=== PATIENT | female | born 1985 | race Caucasian/White ===

== ENCOUNTER 2017-11-23 11:43 | Outpatient (CLI) | payer OTHER | END 2017-11-23 11:44 | disposition home or self-care (01) | LOC: BICULT 11:43 | PROVIDERS: ATTEND Student in an Organized Health Care Education/Training Program | DX: Z12.31 Encounter for screening mammogram for malignant neoplasm of breast (principal) | CPT/HCPCS: 77063; 77067 ==

== ENCOUNTER 2018-10-06 11:54 | Emergency (ER) | payer OTHER ==
[2018-10-06 12:23] LABS: #Eosinphils 0.1 thou/uL (0.0-0.7); #Lymphocytes 1.9 thou/uL (1.20-3.40); #Monocytes 0.4 thou/uL (0.11-0.59); #Neutrophils 5.6 thou/uL (1.40-6.50); %Basophils 0.5 % (0.0-1.0); %Eosinophils 0.9 % (0.0-10.0); %Lymphocytes 23.6 % (21.0-51.0); %Monocytes 4.5 % (0.0-10.0); %Neutrophils 70.5 % (42.0-75.0); Hemoglobin 14.4 g/dL (12.0-16.0); Mean Corpuscular HGB CONC 34.2 g/dL (32.0-36.0); Mean Corpuscular Hemoglobin 31.8 pg (27.0-31.0); Mean Corpuscular Volume 93.1 fL (78.0-98.0); Mean Platelet Volume 7.6 fL (7.4-10.4); Platelet Count 326 thou/uL (130-400); RBC Distribution Width 11.6 % (11.5-14.5); Red Blood Cell (RBC) Count 4.53 mill/uL (4.20-5.40); White Blood Cell (WBC) Count 7.9 thou/uL (4.8-10.8)
[2018-10-06 12:26] LABS: BHCG - Serum Negative (NEGATIVE); Pregs Control Background? CLEAR/WHITE (CLR/WHITE); Pregs Control Bar Appear? YES (CONTROL BAR)
[2018-10-06 12:37] LABS: ALT (SGPT) 18 U/L (8-55); AST (SGOT) 19 U/L (5-34); Albumin 4.5 g/dL (3.5-5.0); Alkaline Phosphatase 59 U/L (40-150); Anion Gap 15 mmol/L (10-20); BUN (Urea Nitrogen) 12 mg/dL (7.0-18.7); Bilirubin, Total 1.4 mg/dL (0.2-1.2); CK (CPK) 124 U/L (29-168); Calc. Creatinine Clearance 0 mL/min (70-130); Calcium 9.4 mg/dL (7.8-10.44); Carbon Dioxide 23 mmol/L (22-29); Chloride 103 mmol/L (98-107); Estimated GFR-MDRD 79; Globulin 2.7 g/dL (2.4-3.5); Glucose 164 mg/dL (70-105); Lipase 12 U/L (8-78); Potassium 3.6 mmol/L (3.5-5.1); Protein, Total 7.2 g/dL (6.0-8.3); Sodium 137 mmol/L (136-145)
[2018-10-06 12:40] LABS: CKMB 1.7 ng/mL (0-6.6); Troponin I Less than 0.010 ng/mL (< 0.028)
[2018-10-06] MEDS ORDERED: Lorazepam 2 MG/ML VIAL ONE (13:17)
[2018-10-06] MEDS ORDERED: Ondansetron PF 4 MG/2 ML Vial ONE (13:38)
--- NOTE | 2018-10-06 14:06 | RAD ---
RADIOGRAPH CHEST 1 VIEW: HISTORY: 33-year-old female with tachycardia. FINDINGS: The visualized lung ward are clear. The cardiomediastinal silhouette and hilar shadows are normal. The lateral costophrenic angles are sharp. The osseous structures appear normal. There is no pneu mothorax. IMPRESSION: Negative. [email or web address] [] POS: DARRICK
== END 2018-10-06 13:56 | disposition home or self-care (01) ==
LOC: ERS 11:54
DX: R00.2 Palpitations (principal); Z79.899 Other long term (current) drug therapy
CPT/HCPCS: 36415; 71045; 80053; 82550; 82553; 83690; 84443; 84484; 84703; 85025; 85379; 93005; 96374; 96375; J2060; J2405

== ENCOUNTER 2021-04-12 12:38 | Outpatient (CLI) | payer OTHER | END 2021-04-12 12:39 | disposition home or self-care (01) | LOC: SCSMRI 12:38 | PROVIDERS: ATTEND Orthopaedic Surgery | DX: S83.512A Sprain of anterior cruciate ligament of left knee, initial encounter (principal); S86.812A Strain of other muscle(s) and tendon(s) at lower leg level, left leg, initial encounter; R60.0 Localized edema ==

== ENCOUNTER 2021-04-29 13:08 | Outpatient (CLI) | payer OTHER ==
[2021-04-29 14:44] LABS: BHCG - Serum Negative (NEGATIVE); Pregs Control Background? CLEAR/WHITE (CLR/WHITE); Pregs Control Bar Appear? YES (CONTROL BAR)
== END 2021-04-29 13:09 | disposition home or self-care (01) ==
LOC: LABBT 13:08
PROVIDERS: ATTEND Orthopaedic Surgery
DX: Z01.812 Encounter for preprocedural laboratory examination (principal); S83.512A Sprain of anterior cruciate ligament of left knee, initial encounter; Z20.822 Contact with and (suspected) exposure to COVID-19
CPT/HCPCS: 84703

== ENCOUNTER 2021-05-04 06:59 | Observation (INO) | payer OTHER ==
[2021-05-03 10:36] VITALS: BMI 26.4
[2021-05-04] MEDS ORDERED: Midazolam HCl 2 mg/2 ml Vial ONE (08:01)
[2021-05-04] MEDS ORDERED: Lidocaine 1% (PF) 30 ML VIAL ONE (08:01)
[2021-05-04] MEDS ORDERED: Fentanyl 100 MCG/2 ML VIAL ONE ×4 (08:01→11:31)
[2021-05-04] MEDS ORDERED: Scopolamine 1.5 mg/72 hour Patch ONE (08:28)
[2021-05-04] MEDS ORDERED: Vancomycin 1 GM/200 ML BAG ONE (08:39)
[2021-05-04] MEDS ORDERED: Ropivacaine 0.2% 550 ML 550 ML NERVE BLCK SCH (08:45)
[2021-05-04] MEDS ORDERED: Promethazine HCl 25 MG/ML VIAL IM PRN (08:45)
[2021-05-04] MEDS ORDERED: Ondansetron PF 4 MG/2 ML Vial IVP PRN (08:45)
[2021-05-04] MEDS ORDERED: Zolpidem Tartrate 5 MG TAB PO PRN (08:45)
[2021-05-04] MEDS ORDERED: traMADol HCl 50 MG TAB PO PRN ×2 (08:45→10:35)
[2021-05-04] MEDS ORDERED: HYDROcodone/Acetaminophen 10/325 mg Tablet PO PRN ×2 (08:45)
[2021-05-04] MEDS ORDERED: Propofol 500 MG/50 ML VIAL ONE ×2 (09:01→11:05)
[2021-05-04] MEDS ORDERED: Ketorolac Tromethamine 30 MG/ML VIAL ONE (09:08)
[2021-05-04] MEDS ORDERED: PROPOFOL 200 MG/20 ML VIAL ONE (09:08)
[2021-05-04] MEDS ORDERED: Dexamethasone 20 MG/5 ML VIAL ONE (09:08)
[2021-05-04] MEDS ORDERED: Bupivacaine HCl 0.5%/Epinephrine 1:200,000/PF 30 ml Vial ONE (09:08)
[2021-05-04] MEDS ORDERED: Ondansetron PF 4 MG/2 ML Vial ONE (09:08)
[2021-05-04] MEDS ORDERED: Bisacodyl 10 MG SUPP PR PRN (10:31)
[2021-05-04] MEDS ORDERED: Morphine 2 MG/ML VIAL SLOW IVP PRN (10:31)
[2021-05-04] MEDS ORDERED: Methocarbamol 500 MG TAB PO PRN (10:31)
[2021-05-04] MEDS ORDERED: Acetaminophen 500 MG TAB PO PRN (10:31)
[2021-05-04] MEDS ORDERED: diphenhydrAMINE 50 MG CAP PO PRN (10:31)
[2021-05-04] MEDS ORDERED: Milk Of Magnesia 30 ML UDCUP PO PRN (10:31)
[2021-05-04] MEDS ORDERED: diphenhydrAMINE 25 MG CAP PO PRN (10:34)
[2021-05-04] MEDS ORDERED: Promethazine HCl 25 MG/ML VIAL ONE (11:01)
[2021-05-04] MEDS: Dextrose 5 %-0.45 % NaCl 1,000 ML IV SCH ×2 (13:18→21:16)
[2021-05-04] MEDS: Ketorolac Tromethamine 30 MG/ML VIAL IVP SCH ×3 (13:19→23:34)
[2021-05-04] MEDS: traMADol HCl 50 MG TAB PO PRN (13:20)
[2021-05-04] MEDS: CEFAZOLIN 2 GM in Premix Bag 1 BAG IVPB SCH ×2 (15:26→23:35)
[2021-05-04] MEDS: Fentanyl 100 MCG/2 ML VIAL IV PRN ×2 (17:11→21:08)
[2021-05-04] MEDS: Famotidine 20 MG TAB PO SCH (20:18)
[2021-05-05] MEDS: Ketorolac Tromethamine 30 MG/ML VIAL IVP SCH ×2 (06:30→11:17)
[2021-05-05] MEDS: traMADol HCl 50 MG TAB PO PRN ×2 (06:33→10:59)
[2021-05-05] MEDS: Dextrose 5 %-0.45 % NaCl 1,000 ML IV SCH (07:27)
[2021-05-05] MEDS: Famotidine 20 MG TAB PO SCH (08:23)
[2021-05-05 11:46] VITALS: BP 135/81; TEMP 97.9
== END 2021-05-05 12:20 | disposition home or self-care (01) ==
LOC: SDC 06:59 → SURG A 10:31
PROVIDERS: ADMIT Orthopaedic Surgery; ATTEND Orthopaedic Surgery
PROC: 3E0T3BZ Introduction of Anesthetic Agent into Peripheral Nerves and Plexi, Percutaneous Approach (ICD-10-PCS; principal; 2021-05-04)
PROC: 0MRP47Z Replacement of Left Knee Bursa and Ligament with Autologous Tissue Substitute, Percutaneous Endoscopic Approach (ICD-10-PCS; 2021-05-04)
DX: S83.512A Sprain of anterior cruciate ligament of left knee, initial encounter (principal); G89.18 Other acute postprocedural pain; K21.9 Gastro-esophageal reflux disease without esophagitis; Z79.899 Other long term (current) drug therapy; Z88.5 Allergy status to narcotic agent; W19.XXXA Unspecified fall, initial encounter
CPT/HCPCS: 96365; 96375; 96376; A4306; C1713; G0378; J0690; J1100; J1885; J2001; J2250; J2405; J2550; J2704; J2795; J3010; J3370

== ENCOUNTER 2021-05-07 13:19 | Emergency (ER) | payer OTHER ==
[2021-05-07 16:03] LABS: #Basophils 0.1 thou/uL (0.0-0.2); #Eosinphils 0.1 thou/uL (0.0-0.7); #Lymphocytes 1.7 thou/uL (1.20-3.40); #Monocytes 0.4 thou/uL (0.11-0.59); #Neutrophils 4.3 thou/uL (1.40-6.50); %Basophils 1.1 % (0.0-1.0); %Lymphocytes 26.1 % (21.0-51.0); %Monocytes 6.5 % (0.0-10.0); %Neutrophils 64.3 % (42.0-75.0); Hemoglobin 13.8 g/dL (12.0-16.0); Mean Corpuscular HGB CONC 34.6 g/dL (32.0-36.0); Mean Corpuscular Hemoglobin 32.3 pg (27.0-31.0); Mean Corpuscular Volume 93.3 fL (78.0-98.0); Mean Platelet Volume 8.1 fL (7.4-10.4); Platelet Count 302 thou/uL (130-400); RBC Distribution Width 10.9 % (11.5-14.5); Red Blood Cell (RBC) Count 4.27 mill/uL (4.20-5.40); White Blood Cell (WBC) Count 6.7 thou/uL (4.8-10.8)
[2021-05-07 16:14] LABS: Prothrombin Time 13.5 sec (12.0-14.7)
[2021-05-07 16:17] LABS: D-Dimer Test 0.27 *mcg/mL (0.27-0.43)
[2021-05-07 16:18] LABS: ALT (SGPT) 29 U/L (8-55); AST (SGOT) 35 U/L (5-34); Albumin 4.4 g/dL (3.5-5.0); Alkaline Phosphatase 67 U/L (40-110); Anion Gap 18 mmol/L (10-20); BUN (Urea Nitrogen) 14 mg/dL (7.0-18.7); Bilirubin, Total 0.6 mg/dL (0.2-1.2); Calc. Creatinine Clearance 0 mL/min (70-130); Calcium 9.9 mg/dL (7.8-10.44); Carbon Dioxide 21 mmol/L (22-29); Chloride 101 mmol/L (98-107); Globulin 2.5 g/dL (2.4-3.5); Glucose 82 mg/dL (70-105); Protein, Total 6.9 g/dL (6.0-8.3); Sodium 136 mmol/L (136-145)
[2021-05-07 16:22] LABS: Troponin I Less than 0.010 ng/mL (< 0.028)
== END 2021-05-07 16:33 | disposition home or self-care (01) ==
LOC: ERS 13:19
DX: M96.840 Postprocedural hematoma of a musculoskeletal structure following a musculoskeletal system procedure (principal); K21.9 Gastro-esophageal reflux disease without esophagitis; Z79.899 Other long term (current) drug therapy
CPT/HCPCS: 80053; 84484; 85025; 85379; 85610; 85730; 93005; 93010

== ENCOUNTER 2022-09-28 09:31 | Outpatient (CLI) | payer BC | END 2022-09-28 09:32 | disposition home or self-care (01) | LOC: CT 09:31 | PROVIDERS: ATTEND Internal Medicine | DX: K57.32 Diverticulitis of large intestine without perforation or abscess without bleeding (principal); K63.89 Other specified diseases of intestine | CPT/HCPCS: 74177 ==

== ENCOUNTER 2022-09-28 14:47 | Inpatient (IN) | payer BC ==
[2022-09-28 15:13] VITALS: BMI 28.0
[2022-09-28] MEDS ORDERED: Morphine 4 MG/ML VIAL SLOW IVP SCH ×2 (17:15→21:15)
[2022-09-28] MEDS ORDERED: Morphine 2 MG/ML VIAL SLOW IVP PRN (17:41)
[2022-09-28] MEDS: Ondansetron PF 4 MG/2 ML Vial IVP PRN (17:54)
[2022-09-28] MEDS: Lactated Ringer's 1,000 ML IV SCH (18:06)
[2022-09-28] MEDS ORDERED: Piperacillin/Tazobactam 3.375 GM in Sodium Chloride 0.9% 100 ML IVPB SCH (18:30)
[2022-09-28] MEDS ORDERED: Morphine 2 MG/ML VIAL SLOW IVP SCH (20:30)
[2022-09-28] MEDS: Famotidine 20 MG TAB PO SCH (21:07)
[2022-09-28] MEDS ORDERED: Piperacillin/Tazobactam 4.5 GM in Sodium Chloride 0.9% 100 ML IVPB SCH (22:00)
[2022-09-28] MEDS: Piperacillin/Tazobactam 3.375 GM in Sodium Chloride 0.9% 100 ML IVPB SCH (23:32)
[2022-09-28] MEDS: Promethazine 25 MG TAB PO PRN (23:38)
[2022-09-29] MEDS: Morphine 4 MG/ML VIAL SLOW IVP PRN ×4 (03:32→19:23)
[2022-09-29 05:26] LABS: #Eosinphils 0.1 thou/uL (0.0-0.7); #Lymphocytes 1.9 thou/uL (1.20-3.40); #Monocytes 0.5 thou/uL (0.11-0.59); #Neutrophils 2.4 thou/uL (1.40-6.50); %Basophils 0.7 % (0.0-1.0); %Eosinophils 1.9 % (0.0-10.0); %Lymphocytes 39.5 % (21.0-51.0); %Monocytes 9.4 % (0.0-10.0); %Neutrophils 48.5 % (42.0-75.0); Hemoglobin 12.1 g/dL (12.0-16.0); Mean Corpuscular HGB CONC 33.4 g/dL (32.0-36.0); Mean Corpuscular Hemoglobin 31.4 pg (27.0-31.0); Mean Corpuscular Volume 94.1 fl (78.0-98.0); Mean Platelet Volume 8.2 fL (7.4-10.4); Platelet Count 276 10x3/uL (130-400); Red Blood Cell (RBC) Count 3.85 mill/uL (4.20-5.40); White Blood Cell (WBC) Count 4.9 10x3/uL (4.8-10.8)
[2022-09-29 05:58] LABS: ALT (SGPT) 23 U/L (8-55); AST (SGOT) 18 U/L (5-34); Albumin 3.6 g/dL (3.5-5.0); Alkaline Phosphatase 47 U/L (40-110); Anion Gap 10 mmol/L (10-20); BUN (Urea Nitrogen) 5 mg/dL (7.0-18.7); Calc. Creatinine Clearance 103 mL/min (70-130); Carbon Dioxide 26 mmol/L (22-29); Chloride 107 mmol/L (98-107); Estimated GFR 98; Globulin 2.4 g/dL (2.4-3.5); Glucose 87 mg/dL (70-105); Potassium 3.6 mmol/L (3.5-5.1); Sodium 139 mmol/L (136-145)
[2022-09-29] MEDS: Lactated Ringer's 1,000 ML IV SCH ×2 (06:40→13:54)
[2022-09-29] MEDS: Piperacillin/Tazobactam 3.375 GM in Sodium Chloride 0.9% 100 ML IVPB SCH ×3 (06:45→23:12)
[2022-09-29] MEDS: Ondansetron PF 4 MG/2 ML Vial IVP PRN (08:53)
[2022-09-29] MEDS: Famotidine 20 MG TAB PO SCH ×2 (08:53→19:23)
[2022-09-29] MEDS ORDERED: FLU VACC QS2022-23(6MOS UP)/PF 60 MCG/0.5 ML SYRINGE IM ONE (09:00)
[2022-09-29] MEDS: Promethazine 25 MG TAB PO PRN ×2 (13:54→20:33)
[2022-09-29] MEDS: Ketorolac Tromethamine 30 MG/ML VIAL IVP PRN (17:59)
[2022-09-30 05:28] LABS: #Eosinphils 0.1 thou/uL (0.0-0.7); #Lymphocytes 1.7 thou/uL (1.20-3.40); #Monocytes 0.3 thou/uL (0.11-0.59); #Neutrophils 1.2 thou/uL (1.40-6.50); %Basophils 1.2 % (0.0-1.0); %Eosinophils 3.6 % (0.0-10.0); %Lymphocytes 49.1 % (21.0-51.0); %Monocytes 9.2 % (0.0-10.0); %Neutrophils 36.8 % (42.0-75.0); Hemoglobin 12.1 g/dL (12.0-16.0); Mean Corpuscular HGB CONC 33.1 g/dL (32.0-36.0); Mean Corpuscular Hemoglobin 31.5 pg (27.0-31.0); Mean Platelet Volume 8.2 fL (7.4-10.4); Platelet Count 269 10x3/uL (130-400); RBC Distribution Width 10.9 % (11.5-14.5); Red Blood Cell (RBC) Count 3.84 mill/uL (4.20-5.40); White Blood Cell (WBC) Count 3.4 10x3/uL (4.8-10.8)
[2022-09-30 05:53] LABS: ALT (SGPT) 23 U/L (8-55); AST (SGOT) 17 U/L (5-34); Albumin 3.5 g/dL (3.5-5.0); Alkaline Phosphatase 44 U/L (40-110); Anion Gap 11 mmol/L (10-20); BUN (Urea Nitrogen) 5 mg/dL (7.0-18.7); Bilirubin, Total 0.9 mg/dL (0.2-1.2); Calc. Creatinine Clearance 109 mL/min (70-130); Calcium 8.7 mg/dL (7.8-10.44); Carbon Dioxide 25 mmol/L (22-29); Chloride 107 mmol/L (98-107); Estimated GFR 106; Globulin 2.3 g/dL (2.4-3.5); Glucose 91 mg/dL (70-105); Potassium 3.7 mmol/L (3.5-5.1); Protein, Total 5.8 g/dL (6.0-8.3); Sodium 139 mmol/L (136-145)
[2022-09-30] MEDS: Piperacillin/Tazobactam 3.375 GM in Sodium Chloride 0.9% 100 ML IVPB SCH ×3 (06:38→23:28)
[2022-09-30] MEDS: Ketorolac Tromethamine 30 MG/ML VIAL IVP PRN ×2 (09:37→18:21)
[2022-09-30] MEDS: Famotidine 20 MG TAB PO SCH ×2 (09:38→20:04)
[2022-09-30] MEDS: Morphine 4 MG/ML VIAL SLOW IVP PRN ×2 (13:43→20:09)
[2022-09-30] MEDS: Promethazine 25 MG TAB PO PRN ×2 (13:44→20:11)
[2022-10-01] MEDS: Morphine 4 MG/ML VIAL SLOW IVP PRN ×2 (03:48→16:32)
[2022-10-01 05:31] LABS: #Eosinphils 0.2 thou/uL (0.0-0.7); #Lymphocytes 1.9 thou/uL (1.20-3.40); #Monocytes 0.4 thou/uL (0.11-0.59); #Neutrophils 1.7 thou/uL (1.40-6.50); %Basophils 0.8 % (0.0-1.0); %Eosinophils 3.9 % (0.0-10.0); %Lymphocytes 45.1 % (21.0-51.0); %Neutrophils 41.2 % (42.0-75.0); Hemoglobin 12.8 g/dL (12.0-16.0); Mean Platelet Volume 8.1 fL (7.4-10.4); Platelet Count 306 10x3/uL (130-400); RBC Distribution Width 10.7 % (11.5-14.5); Red Blood Cell (RBC) Count 4.12 mill/uL (4.20-5.40); White Blood Cell (WBC) Count 4.1 10x3/uL (4.8-10.8)
[2022-10-01 05:55] LABS: ALT (SGPT) 28 U/L (8-55); AST (SGOT) 21 U/L (5-34); Albumin 3.8 g/dL (3.5-5.0); Alkaline Phosphatase 48 U/L (40-110); Anion Gap 9 mmol/L (10-20); BUN (Urea Nitrogen) 5 mg/dL (7.0-18.7); Bilirubin, Total 0.8 mg/dL (0.2-1.2); Calc. Creatinine Clearance 107 mL/min (70-130); Carbon Dioxide 28 mmol/L (22-29); Chloride 106 mmol/L (98-107); Estimated GFR 103; Globulin 2.4 g/dL (2.4-3.5); Glucose 81 mg/dL (70-105); Potassium 3.5 mmol/L (3.5-5.1); Protein, Total 6.2 g/dL (6.0-8.3); Sodium 139 mmol/L (136-145)
[2022-10-01] MEDS: Piperacillin/Tazobactam 3.375 GM in Sodium Chloride 0.9% 100 ML IVPB SCH ×3 (06:27→22:34)
[2022-10-01] MEDS: Famotidine 20 MG TAB PO SCH (09:28)
[2022-10-01] MEDS: Ketorolac Tromethamine 30 MG/ML VIAL IVP PRN (14:12)
[2022-10-01] MEDS: Promethazine 25 MG TAB PO PRN (16:32)
[2022-10-01] MEDS ORDERED: Pantoprazole 40 MG VIAL IVP SCH (17:15)
[2022-10-01] MEDS ORDERED: diphenhydrAMINE 50 MG/ML VIAL IM/IV SCH (20:00)
[2022-10-02] MEDS: Piperacillin/Tazobactam 3.375 GM in Sodium Chloride 0.9% 100 ML IVPB SCH ×2 (06:32→15:32)
[2022-10-02] MEDS ORDERED: Pantoprazole 40 MG VIAL IVP SCH (09:00)
[2022-10-02 09:39] VITALS: BP 139/84; TEMP 98
== END 2022-10-02 19:37 | disposition home or self-care (01) | DRG 391 ==
LOC: MSONC 14:56
PROVIDERS: ADMIT Internal Medicine; ATTEND Internal Medicine
DX: K57.20 Diverticulitis of large intestine with perforation and abscess without bleeding (principal); K65.1 Peritoneal abscess; K21.9 Gastro-esophageal reflux disease without esophagitis; Z79.899 Other long term (current) drug therapy
CPT/HCPCS: 36415; 74177; 80053; 82565; 85025; 90471; 90686; C9113; G0008; J1200; J1885; J2270; J2405; J2543; J3490; J7120; Q0169; U0003; U0005

== ENCOUNTER 2024-05-06 10:14 | Inpatient (IN) | payer BC ==
[~2024-05-06 10:14] MED LIST: Iopamidol-370 76% 500 ML MDV (1 ML CHARGE) ONE
[2024-05-06 10:48] LABS: #Basophils Less than 0.03 10x3/uL (0.0-0.2); #Eosinphils Less than 0.03 10x3/uL (0.0-0.7); %Basophils 0.2 % (0.0-1.0); %Eosinophils 0.2 % (0.0-10.0); %Lymphocytes 7.6 % (21.0-51.0); %Monocytes 4.5 % (0.0-10.0); %Neutrophils 87.3 % (42.0-75.0); Hematocrit 40.2 % (36.0-47.0); Mean Corpuscular HGB CONC 34.8 g/dL (32.0-36.0); Mean Corpuscular Hemoglobin 31.5 pg (27.0-31.0); Mean Corpuscular Volume 90.3 fL (78.0-98.0); Mean Platelet Volume 9.4 fL (7.4-10.4); Platelet Count 272 10x3/uL (130-400); RBC Distribution Width 12.6 % (11.5-14.5); Red Blood Cell (RBC) Count 4.45 mill/uL (4.20-5.40)
[2024-05-06] MEDS ORDERED: Ondansetron PF 4 MG/2 ML Vial ONE (10:53)
[2024-05-06] MEDS ORDERED: Ketorolac Tromethamine 30 MG (1 mL) VIAL ONE (10:53)
[2024-05-06] MEDS ORDERED: Morphine 4 MG/ML VIAL ONE (10:53)
[2024-05-06 11:01] LABS: BHCG - Serum Negative (NEGATIVE); Pregs Control Background? CLEAR/WHITE (CLR/WHITE); Pregs Control Bar Appear? YES (CONTROL BAR)
[2024-05-06 11:03] LABS: ALT (SGPT) 98 U/L (8-55); AST (SGOT) 50 U/L (5-34); Albumin 4.1 g/dL (3.5-5.0); Alkaline Phosphatase 62 U/L (40-110); Anion Gap 14 mmol/L (10-20); BUN (Urea Nitrogen) 7 mg/dL (7.0-18.7); Bilirubin, Total 2.3 mg/dL (0.2-1.2); Calc. Creatinine Clearance 0 mL/min (70-130); Calcium 9.4 mg/dL (7.8-10.44); Carbon Dioxide 23 mmol/L (22-29); Chloride 104 mmol/L (98-107); Estimated GFR 114; Globulin 3.2 g/dL (2.4-3.5); Glucose 111 mg/dL (70-105); Lipase 9 U/L (8-78); Potassium 3.6 mmol/L (3.5-5.1); Protein, Total 7.3 g/dL (6.0-8.3); Sodium 137 mmol/L (136-145)
[2024-05-06] MEDS ORDERED: Piperacillin/Tazobactam 4.5 GM VIAL ONE (11:42)
[2024-05-06] MEDS ORDERED: Sodium Chloride 0.9% 100 ML ONE (11:42)
[2024-05-06 13:07] LABS: Bacteria/HPF None Seen HPF (None Seen); Bilirubin Negative (Negative); Blood, Urine 3+ (Negative); CAUTI Indications for Culture Pelvic or flank pain; Clarity Clear (Clear); Glucose, Urine (Dipstick) Normal (Negative); Ketone, Urine Trace mg/dL (Negative); Leukocyte 25 Leu/uL (Negative); Nitrite Negative (Negative); Protein, Urine (Dipstick) Negative (Neg-Trace); RBC/HPF 21-50 HPF (0-3); Specific Gravity, Urine 1.041 (1.002-1.036); Squamous Epithelial 0-3 HPF (0-3); Urobilinogen Normal mg/dL (Less than 2); WBC/HPF 0-3 HPF (0-3)
[2024-05-06 13:14] LABS: Urine Culture Reflex No No
[2024-05-06] MEDS ORDERED: Ondansetron PF 4 MG/2 ML Vial IVP PRN (13:30)
[2024-05-06] MEDS ORDERED: Morphine 2 MG/ML VIAL SLOW IVP PRN (13:50)
[2024-05-06] MEDS ORDERED: Acetaminophen 650 MG Suppository PR PRN (13:51)
[2024-05-06] MEDS ORDERED: Sodium Chloride 0.9% 1,000 ML IV SCH (14:00)
[2024-05-06] MEDS: Morphine 4 MG/ML VIAL SLOW IVP PRN ×2 (14:13→18:14)
[2024-05-06] MEDS: Lactated Ringer's 1,000 ML IV SCH ×2 (14:13→15:05)
[2024-05-06] MEDS ORDERED: Morphine 4 MG/ML VIAL SLOW IVP PRN (15:18)
[2024-05-06] MEDS ORDERED: Piperacillin/Tazobactam 3.375 GM in Sodium Chloride 0.9% 100 ML IVPB SCH (16:00)
[2024-05-06] MEDS: Piperacillin/Tazobactam 3.375 GM in Sodium Chloride 0.9% 100 ML IVPB SCH (16:14)
[2024-05-06 16:43] VITALS: BMI 27.3
[2024-05-06] MEDS: Ondansetron ODT 4 MG TAB PO PRN (18:14)
[2024-05-06] MEDS: diphenhydrAMINE 25 MG CAP PO SCH (21:55)
[2024-05-06] MEDS: Acetaminophen 325 MG TAB PO PRN (21:56)
[2024-05-07] MEDS: Morphine 2 MG/ML VIAL SLOW IVP PRN (02:02)
[2024-05-07 05:28] LABS: #Basophils Less than 0.03 10x3/uL (0.0-0.2); %Basophils 0.3 % (0.0-1.0); %Eosinophils 1.4 % (0.0-10.0); %Lymphocytes 14.4 % (21.0-51.0); %Monocytes 4.8 % (0.0-10.0); %Neutrophils 78.9 % (42.0-75.0); Hematocrit 34.2 % (36.0-47.0); Hemoglobin 11.3 g/dL (12.0-16.0); Mean Corpuscular Hemoglobin 30.5 pg (27.0-31.0); Mean Corpuscular Volume 92.4 fL (78.0-98.0); Mean Platelet Volume 9.5 fL (7.4-10.4); Platelet Count 193 10x3/uL (130-400); RBC Distribution Width 12.6 % (11.5-14.5)
[2024-05-07 05:42] LABS: Hemoglobin A1c 4.9 % (4.0-6.0)
[2024-05-07 05:45] LABS: ALT (SGPT) 65 U/L (8-55); AST (SGOT) 29 U/L (5-34); Alkaline Phosphatase 52 U/L (40-110); Bilirubin, Direct 0.7 mg/dL (0.1-0.3); Bilirubin, Total 2.2 mg/dL (0.2-1.2); Protein, Total 5.7 g/dL (6.0-8.3)
[2024-05-07 05:46] LABS: Anion Gap 14 mmol/L (10-20); BUN (Urea Nitrogen) 4 mg/dL (7.0-18.7); Calc. Creatinine Clearance 114 mL/min (70-130); Calcium 8.4 mg/dL (7.8-10.44); Carbon Dioxide 24 mmol/L (22-29); Chloride 105 mmol/L (98-107); Estimated GFR 113; Glucose 92 mg/dL (70-105); Potassium 3.5 mmol/L (3.5-5.1); Sodium 139 mmol/L (136-145)
[2024-05-07 06:04] LABS: HBsAg Index 0.27 S/CO (0-0.99); Hep A IgM AB NONREACTIVE (NonReactive); Hep A IgM S/CO 0.15 S/CO (0-0.79); Hep B Surf Ag NONREACTIVE S/CO (NonReactive); Hep C IgG Ab NONREACTIVE S/CO (NonReactive); Hep C Index 0.06 S/CO (0-0.79); Hepatitis B Core IgM Abs NONREACTIVE S/CO (NonReactive)
[2024-05-07] MEDS ORDERED: Ondansetron HCl/PF 4 MG in Sodium Chloride 0.9% 50 ML IVPB PRN (09:53)
[2024-05-07] MEDS ORDERED: Promethazine HCl 12.5 MG in Sodium Chloride 0.9% 50 ML IVPB PRN (09:55)
[2024-05-07] MEDS: Ketorolac Tromethamine 30 MG (1 mL) VIAL IVP SCH (11:23)
[2024-05-07] MEDS: D5 1/2 NS w/20 mEq KCL 1,000 ML IV SCH (11:23)
[2024-05-07] MEDS: Morphine 4 MG/ML VIAL SLOW IVP PRN (12:45)
[2024-05-07] MEDS: Ondansetron PF 4 MG/2 ML Vial IVP PRN (12:47)
[2024-05-07] MEDS: Amlodipine 5 MG TAB PO SCH (17:57)
[2024-05-08] MEDS: Melatonin 3 MG TAB PO PRN (01:46)
[2024-05-08 05:29] LABS: #Basophils Less than 0.03 10x3/uL (0.0-0.2); %Basophils 0.4 % (0.0-1.0); %Eosinophils 1.7 % (0.0-10.0); %Lymphocytes 18.6 % (21.0-51.0); %Monocytes 5.9 % (0.0-10.0); %Neutrophils 72.8 % (42.0-75.0); Hematocrit 31.6 % (36.0-47.0); Hemoglobin 10.5 g/dL (12.0-16.0); Mean Corpuscular HGB CONC 33.2 g/dL (32.0-36.0); Mean Corpuscular Hemoglobin 30.8 pg (27.0-31.0); Mean Corpuscular Volume 92.7 fL (78.0-98.0); Platelet Count 206 10x3/uL (130-400); RBC Distribution Width 12.4 % (11.5-14.5); Red Blood Cell (RBC) Count 3.41 mill/uL (4.20-5.40)
[2024-05-08 06:07] LABS: Anion Gap 8 mmol/L (10-20); BUN (Urea Nitrogen) Less than 4 mg/dL (7.0-18.7); Calc. Creatinine Clearance 123 mL/min (70-130); Calcium 8.6 mg/dL (7.8-10.44); Carbon Dioxide 26 mmol/L (22-29); Chloride 106 mmol/L (98-107); Estimated GFR 115; Glucose 112 mg/dL (70-105); Potassium 3.3 mmol/L (3.5-5.1); Sodium 137 mmol/L (136-145)
[2024-05-08 08:05] LABS: ALT (SGPT) 48 U/L (8-55); AST (SGOT) 22 U/L (5-34); Albumin 2.8 g/dL (3.5-5.0); Alkaline Phosphatase 48 U/L (40-110); Bilirubin, Direct 0.5 mg/dL (0.1-0.3); Bilirubin, Total 1.3 mg/dL (0.2-1.2); Protein, Total 5.6 g/dL (6.0-8.3)
[2024-05-08] MEDS: Melatonin 3 MG TAB ONE (08:50)
[2024-05-08] MEDS: Pantoprazole 40 MG VIAL IVP SCH (08:57)
[2024-05-08] MEDS: Amlodipine 5 MG TAB PO SCH ×2 (08:57→17:52)
[2024-05-08] MEDS: Potassium Chloride 20 MEQ TAB PO SCH (08:58)
[2024-05-08] MEDS ORDERED: Non-Formulary Item 1 EACH (Melatonin [Melatonin] 10 MG Tablet) PO PRN (09:18)
[2024-05-08] MEDS ORDERED: Non-Formulary Item 1 EACH (Escitalopram Oxalate [Lexapro] 5 MG Tablet) PO SCH (09:19)
[2024-05-08] MEDS ORDERED: Melatonin 3 MG TAB PO PRN (09:31)
[2024-05-08] MEDS: Escitalopram Oxalate 10 mg Tablet PO SCH (09:40)
[2024-05-08] MEDS: Potassium Chloride 40 MEQ in Premix 1 BAG IVPB SCH (15:30)
[2024-05-08] MEDS: Potassium Chloride 20 MEQ in Premix 1 BAG IVPB SCH (15:30)
[2024-05-08] MEDS: Enoxaparin 40 MG (0.4 mL) SYRINGE SC SCH (19:55)
[2024-05-09 04:33] LABS: #Basophils 0.03 10x3/uL (0.0-0.2); %Basophils 0.8 % (0.0-1.0); %Eosinophils 3.8 % (0.0-10.0); %Lymphocytes 26.8 % (21.0-51.0); %Monocytes 7.4 % (0.0-10.0); %Neutrophils 60.9 % (42.0-75.0); Hemoglobin 10.6 g/dL (12.0-16.0); Mean Corpuscular HGB CONC 33.1 g/dL (32.0-36.0); Mean Corpuscular Hemoglobin 30.8 pg (27.0-31.0); Mean Platelet Volume 9.9 fL (7.4-10.4); Platelet Count 217 10x3/uL (130-400); RBC Distribution Width 12.2 % (11.5-14.5); Red Blood Cell (RBC) Count 3.44 mill/uL (4.20-5.40)
[2024-05-09 04:50] LABS: Anion Gap 12 mmol/L (10-20); BUN (Urea Nitrogen) Less than 4 mg/dL (7.0-18.7); Calc. Creatinine Clearance 129 mL/min (70-130); Calcium 8.8 mg/dL (7.8-10.44); Carbon Dioxide 22 mmol/L (22-29); Chloride 108 mmol/L (98-107); Estimated GFR 117; Glucose 114 mg/dL (70-105); Sodium 138 mmol/L (136-145)
[2024-05-09 04:52] LABS: ALT (SGPT) 48 U/L (8-55); AST (SGOT) 27 U/L (5-34); Albumin 2.8 g/dL (3.5-5.0); Alkaline Phosphatase 51 U/L (40-110); Bilirubin, Direct 0.3 mg/dL (0.1-0.3); Bilirubin, Total 0.8 mg/dL (0.2-1.2); Protein, Total 5.4 g/dL (6.0-8.3)
[2024-05-09] MEDS: Amlodipine 5 MG TAB PO SCH (15:07)
[2024-05-09] MEDS: clonazePAM 0.5 MG TAB PO SCH (17:03)
[2024-05-09] MEDS: Losartan 25 MG TAB PO SCH (18:30)
[2024-05-10 05:53] LABS: #Basophils 0.04 10x3/uL (0.0-0.2); %Basophils 1.1 % (0.0-1.0); %Lymphocytes 25.6 % (21.0-51.0); %Monocytes 9.2 % (0.0-10.0); %Neutrophils 59.8 % (42.0-75.0); Hematocrit 36.3 % (36.0-47.0); Hemoglobin 12.1 g/dL (12.0-16.0); Mean Corpuscular HGB CONC 33.3 g/dL (32.0-36.0); Mean Corpuscular Hemoglobin 30.6 pg (27.0-31.0); Mean Corpuscular Volume 91.7 fL (78.0-98.0); Mean Platelet Volume 9.8 fL (7.4-10.4); Platelet Count 260 10x3/uL (130-400); Red Blood Cell (RBC) Count 3.96 mill/uL (4.20-5.40)
[2024-05-10 06:17] LABS: Anion Gap 13 mmol/L (10-20); BUN (Urea Nitrogen) 4 mg/dL (7.0-18.7); Calc. Creatinine Clearance 119 mL/min (70-130); Calcium 9.1 mg/dL (7.8-10.44); Carbon Dioxide 26 mmol/L (22-29); Chloride 102 mmol/L (98-107); Estimated GFR 114; Glucose 96 mg/dL (70-105); Potassium 3.8 mmol/L (3.5-5.1); Sodium 137 mmol/L (136-145)
[2024-05-10 06:28] LABS: ALT (SGPT) 49 U/L (8-55); AST (SGOT) 29 U/L (5-34); Albumin 3.1 g/dL (3.5-5.0); Alkaline Phosphatase 58 U/L (40-110); Bilirubin, Direct 0.3 mg/dL (0.1-0.3); Bilirubin, Total 0.8 mg/dL (0.2-1.2); Protein, Total 6.5 g/dL (6.0-8.3)
[2024-05-10] MEDS: Amlodipine 10 MG TAB PO SCH (09:55)
[2024-05-10] MEDS: Losartan 25 MG TAB PO SCH (09:56)
[2024-05-10] MEDS: clonazePAM 0.5 MG TAB PO SCH (14:05)
[2024-05-10] MEDS ORDERED: clonazePAM 0.5 MG TAB PO SCH (15:22)
[2024-05-10] MEDS: clonazePAM 0.5 MG TAB PO PRN (22:21)
[2024-05-11] MEDS ORDERED: Sodium Chloride 0.9% 1,000 ML IV SCH (16:30)
[2024-05-11] MEDS: Sodium Chloride 0.9% 1,000 ML IV SCH ×2 (17:58→21:12)
[2024-05-11 18:36] LABS: #Basophils 0.04 10x3/uL (0.0-0.2); %Basophils 0.5 % (0.0-1.0); %Monocytes 4.4 % (0.0-10.0); %Neutrophils 78.7 % (42.0-75.0); Hematocrit 48.2 % (36.0-47.0); Hemoglobin 16.3 g/dL (12.0-16.0); Mean Corpuscular HGB CONC 33.8 g/dL (32.0-36.0); Mean Corpuscular Hemoglobin 31.3 pg (27.0-31.0); Mean Corpuscular Volume 92.5 fL (78.0-98.0); Mean Platelet Volume 9.8 fL (7.4-10.4); Platelet Count 338 10x3/uL (130-400); Red Blood Cell (RBC) Count 5.21 mill/uL (4.20-5.40)
[2024-05-11 18:48] LABS: ALT (SGPT) 52 U/L (8-55); AST (SGOT) 26 U/L (5-34); Albumin 4.1 g/dL (3.5-5.0); Alkaline Phosphatase 78 U/L (40-110); Anion Gap 21 mmol/L (10-20); BUN (Urea Nitrogen) 6 mg/dL (7.0-18.7); Bilirubin, Direct 0.2 mg/dL (0.1-0.3); Bilirubin, Total 0.9 mg/dL (0.2-1.2); Calc. Creatinine Clearance 99 mL/min (70-130); Calcium 10.4 mg/dL (7.8-10.44); Carbon Dioxide 18 mmol/L (22-29); Chloride 102 mmol/L (98-107); Estimated GFR 98; Glucose 96 mg/dL (70-105); Potassium 3.9 mmol/L (3.5-5.1); Protein, Total 9.2 g/dL (6.0-8.3); Sodium 137 mmol/L (136-145)
[2024-05-12 06:54] LABS: #Basophils 0.05 10x3/uL (0.0-0.2); %Basophils 0.9 % (0.0-1.0); %Eosinophils 3.3 % (0.0-10.0); %Lymphocytes 26.6 % (21.0-51.0); %Monocytes 9.7 % (0.0-10.0); %Neutrophils 58.8 % (42.0-75.0); Hematocrit 36.1 % (36.0-47.0); Hemoglobin 12.1 g/dL (12.0-16.0); Mean Corpuscular HGB CONC 33.5 g/dL (32.0-36.0); Mean Corpuscular Hemoglobin 30.7 pg (27.0-31.0); Mean Corpuscular Volume 91.6 fL (78.0-98.0); Mean Platelet Volume 9.8 fL (7.4-10.4); Platelet Count 273 10x3/uL (130-400); Red Blood Cell (RBC) Count 3.94 mill/uL (4.20-5.40)
[2024-05-12 07:51] LABS: Anion Gap 14 mmol/L (10-20); BUN (Urea Nitrogen) 5 mg/dL (7.0-18.7); Calc. Creatinine Clearance 126 mL/min (70-130); Calcium 8.8 mg/dL (7.8-10.44); Carbon Dioxide 19 mmol/L (22-29); Chloride 111 mmol/L (98-107); Estimated GFR 116; Glucose 92 mg/dL (70-105); Potassium 3.5 mmol/L (3.5-5.1); Sodium 140 mmol/L (136-145)
[2024-05-13 04:33] LABS: #Basophils 0.05 10x3/uL (0.0-0.2); %Eosinophils 3.8 % (0.0-10.0); %Lymphocytes 27.3 % (21.0-51.0); %Monocytes 8.8 % (0.0-10.0); %Neutrophils 58.7 % (42.0-75.0); Hematocrit 33.6 % (36.0-47.0); Hemoglobin 11.3 g/dL (12.0-16.0); Mean Corpuscular HGB CONC 33.6 g/dL (32.0-36.0); Mean Corpuscular Hemoglobin 30.7 pg (27.0-31.0); Mean Corpuscular Volume 91.3 fL (78.0-98.0); Mean Platelet Volume 9.8 fL (7.4-10.4); Platelet Count 269 10x3/uL (130-400); RBC Distribution Width 11.9 % (11.5-14.5); Red Blood Cell (RBC) Count 3.68 mill/uL (4.20-5.40)
[2024-05-13 04:50] LABS: Anion Gap 15 mmol/L (10-20); BUN (Urea Nitrogen) 6 mg/dL (7.0-18.7); Calc. Creatinine Clearance 110 mL/min (70-130); Calcium 8.7 mg/dL (7.8-10.44); Carbon Dioxide 21 mmol/L (22-29); Chloride 108 mmol/L (98-107); Estimated GFR 111; Glucose 89 mg/dL (70-105); Potassium 3.6 mmol/L (3.5-5.1); Sodium 140 mmol/L (136-145)
[2024-05-13 11:37] VITALS: BP 146/96
[2024-05-13 16:37] VITALS: TEMP 98.6
== END 2024-05-13 14:58 | disposition home or self-care (01) | DRG 392 ==
LOC: ERS 10:14 → SJJU 13:05 → OBSVTOIN 05-07 13:56
PROVIDERS: ADMIT Family Medicine; ATTEND Internal Medicine
DX: K57.20 Diverticulitis of large intestine with perforation and abscess without bleeding (principal); K21.9 Gastro-esophageal reflux disease without esophagitis; F41.9 Anxiety disorder, unspecified; R74.01 Elevation of levels of liver transaminase levels; D64.9 Anemia, unspecified; E88.09 Other disorders of plasma-protein metabolism, not elsewhere classified; E80.4 Gilbert syndrome; I10 Essential (primary) hypertension; Z79.899 Other long term (current) drug therapy; Z98.890 Other specified postprocedural states
CPT/HCPCS: 36415; 74018; 74177; 80048; 80053; 80074; 80076; 81001; 82248; 83036; 83690; 84703; 85025; 87040; 93005; 96361; 96365; 96375; C9113; J1650; J1885; J2270; J2272; J2405; J2543; J3480; J3490; J7050; J7120; Q0162; Q9967

== ENCOUNTER 2024-08-25 05:50 | Inpatient (IN) | payer BC ==
[2024-08-21 13:35] VITALS: BMI 26.4
[2024-08-25] MEDS ORDERED: Gabapentin 300 MG CAP ONE (05:56)
[2024-08-25] MEDS ORDERED: Heparin 5,000 UNITS/ML VIAL ONE (05:56)
[2024-08-25] MEDS ORDERED: CeleCOXIB 100 MG CAP ONE (05:56)
[2024-08-25] MEDS ORDERED: Lidocaine 1% MPF 2 ML VIAL ONE (05:56)
[2024-08-25] MEDS ORDERED: Acetaminophen 325 MG (10.15 ML) UDCUP ONE (05:56)
[2024-08-25] MEDS ORDERED: CEFAZOLIN 1 GM VIAL ONE (05:57)
[2024-08-25] MEDS ORDERED: Sodium Chloride 0.9% 100 ML ONE (05:57)
[2024-08-25] MEDS ORDERED: metroNIDAZOLE 500 MG (100 mL) BAG ONE (05:57)
[2024-08-25 06:19] LABS: #Basophils 0.04 10x3/uL (0.0-0.2); %Basophils 0.9 % (0.0-1.0); %Eosinophils 2.1 % (0.0-10.0); %Lymphocytes 31.2 % (21.0-51.0); %Monocytes 7.9 % (0.0-10.0); %Neutrophils 57.7 % (42.0-75.0); Hemoglobin 13.4 g/dL (12.0-16.0); Mean Corpuscular HGB CONC 34.4 g/dL (32.0-36.0); Mean Corpuscular Hemoglobin 30.1 pg (27.0-31.0); Mean Corpuscular Volume 87.6 fL (78.0-98.0); Mean Platelet Volume 9.7 fL (7.4-10.4); Platelet Count 276 10x3/uL (130-400); RBC Distribution Width 12.4 % (11.5-14.5); Red Blood Cell (RBC) Count 4.45 mill/uL (4.20-5.40)
[2024-08-25 06:36] LABS: ALT (SGPT) 65 U/L (8-55); AST (SGOT) 44 U/L (5-34); Albumin 3.9 g/dL (3.5-5.0); Alkaline Phosphatase 66 U/L (40-110); Anion Gap 14 mmol/L (10-20); BUN (Urea Nitrogen) 8 mg/dL (7.0-18.7); Bilirubin, Total 1.3 mg/dL (0.2-1.2); Calc. Creatinine Clearance 106 mL/min (70-130); Calcium 9.4 mg/dL (7.8-10.44); Carbon Dioxide 23 mmol/L (22-29); Chloride 104 mmol/L (98-107); Estimated GFR 110; Globulin 2.8 g/dL (2.4-3.5); Glucose 93 mg/dL (70-105); Potassium 3.2 mmol/L (3.5-5.1); Protein, Total 6.7 g/dL (6.0-8.3); Sodium 138 mmol/L (136-145)
[2024-08-25] MEDS ORDERED: Bupivacaine 0.25% HCL 30 ML VIAL ONE (07:05)
[2024-08-25] MEDS ORDERED: fentaNYL PF 100 MCG/2 ML SYRINGE ONE (07:05)
[2024-08-25] MEDS ORDERED: EPINEPHrine 1 MG/ML VIAL ONE (07:05)
[2024-08-25] MEDS ORDERED: Indocyanine Green 25 MG/10 ML VIAL ONE (07:05)
[2024-08-25] MEDS ORDERED: PROPOFOL 40 ML ONE (07:06)
[2024-08-25] MEDS ORDERED: Lidocaine 1% PF 5 ML VIAL ONE (07:06)
[2024-08-25] MEDS ORDERED: Rocuronium Bromide 10 MG/ML (10ML VIAL) ONE (07:06)
[2024-08-25] MEDS ORDERED: Propofol 500 MG/50 ML VIAL ONE (07:09)
[2024-08-25] MEDS ORDERED: Scopolamine 1 mg/72 hour Patch ONE (07:16)
[2024-08-25] MEDS ORDERED: Midazolam HCl 2 mg/2 ml Vial ONE (07:26)
[2024-08-25] MEDS ORDERED: Dexamethasone 4 mg/ml Vial ONE (08:03)
[2024-08-25] MEDS ORDERED: ePHEDrine Sulfate 50 MG/10 ML VIAL ONE (08:06)
[2024-08-25] MEDS ORDERED: Dexmedetomidine 200 MCG/2 ML VIAL ONE (08:14)
[2024-08-25] MEDS ORDERED: Labetalol HCl 100 MG/20 ML VIAL ONE (08:18)
[2024-08-25] MEDS ORDERED: SUGAMMADEX SODIUM 200 MG/2 ML VIAL ONE (09:01)
[2024-08-25] MEDS ORDERED: Ketorolac Tromethamine 30 MG (1 mL) VIAL ONE (09:01)
[2024-08-25] MEDS ORDERED: fentaNYL 50 mcg/mL 1 mL Vial ONE (09:08)
[2024-08-25] MEDS ORDERED: Ipratropium/Albuterol 3 ML NEB NEB PRN (09:37)
[2024-08-25] MEDS ORDERED: hydrALAZINE 20 MG/ML VIAL SLOW IVP PRN (09:37)
[2024-08-25] MEDS ORDERED: Promethazine HCl 25 MG/ML VIAL IM PRN (09:37)
[2024-08-25] MEDS ORDERED: Fentanyl 250 MCG/5 ML VIAL ONE (09:40)
[2024-08-25] MEDS ORDERED: HYDROmorphone 0.5 MG/0.5 ML SYRINGE ONE ×2 (10:03→10:14)
[2024-08-25] MEDS ORDERED: Promethazine HCl 25 MG/ML VIAL ONE (10:43)
[2024-08-25] MEDS: Acetaminophen 325 MG TAB PO SCH (13:18)
[2024-08-25] MEDS: Ketorolac Tromethamine 30 MG (1 mL) VIAL IVP SCH (14:57)
[2024-08-25] MEDS: Ondansetron PF 4 MG/2 ML Vial IVP PRN (14:58)
[2024-08-25] MEDS: traMADol HCl 50 MG TAB PO PRN (14:58)
[2024-08-25] MEDS ORDERED: SODIUM CHLORIDE IVPB PRN (15:34)
[2024-08-25] MEDS ORDERED: [UNRECOGNIZED DRUG - OTHER] IVPB PRN (15:34)
[2024-08-25] MEDS ORDERED: HYDROMORPHONE IVPB PRN (15:34)
[2024-08-25] MEDS ORDERED: Melatonin 3 MG TAB PO PRN (15:42)
[2024-08-25] MEDS: HYDROmorphone 0.5 MG/0.5 ML SYRINGE SLOW IVP PRN (17:41)
[2024-08-25] MEDS: diphenhydrAMINE 25 MG CAP PO PRN (20:06)
[2024-08-25] MEDS: clonazePAM 0.5 MG TAB PO PRN (21:28)
[2024-08-26 05:29] LABS: #Basophils Less than 0.03 10x3/uL (0.0-0.2); #Eosinophils Less than 0.03 10x3/uL (0.0-0.7); %Basophils 0.1 % (0.0-1.0); %Lymphocytes 14.9 % (21.0-51.0); %Monocytes 6.7 % (0.0-10.0); %Neutrophils 77.8 % (42.0-75.0); Hematocrit 32.8 % (36.0-47.0); Mean Corpuscular HGB CONC 33.5 g/dL (32.0-36.0); Mean Corpuscular Hemoglobin 30.6 pg (27.0-31.0); Mean Corpuscular Volume 91.4 fL (78.0-98.0); Platelet Count 280 10x3/uL (130-400); RBC Distribution Width 12.4 % (11.5-14.5); Red Blood Cell (RBC) Count 3.59 mill/uL (4.20-5.40)
[2024-08-26 06:20] LABS: Anion Gap 11 mmol/L (10-20); Calc. Creatinine Clearance 112 mL/min (70-130); Calcium 9.1 mg/dL (7.8-10.44); Carbon Dioxide 27 mmol/L (22-29); Chloride 104 mmol/L (98-107); Estimated GFR 113; Glucose 96 mg/dL (70-105); Sodium 139 mmol/L (136-145)
[2024-08-26 06:53] LABS: BUN (Urea Nitrogen) 5 mg/dL (7.0-18.7)
[2024-08-26] MEDS: Enoxaparin 40 MG (0.4 mL) SYRINGE SC SCH (09:26)
[2024-08-26] MEDS: Amlodipine 10 MG TAB PO SCH (09:27)
[2024-08-26] MEDS: FLUoxetine HCl 20 MG CAP PO SCH (09:28)
[2024-08-26] MEDS: Pantoprazole DR 40 MG TAB PO SCH (09:28)
[2024-08-26] MEDS ORDERED: Acetaminophen/Codeine 30-300mg Tablet PO PRN (11:51)
[2024-08-26] MEDS: Acetaminophen/Codeine 30-300mg Tablet PO PRN (12:31)
[2024-08-26] MEDS: Morphine 2 MG/ML VIAL SLOW IVP PRN (17:51)
[2024-08-27] MEDS ORDERED: HYDROcodone/Acetaminophen 7.5/325 mg Tablet PO PRN (09:47)
[2024-08-27] MEDS: HYDROcodone/Acetaminophen 7.5/325 mg Tablet PO PRN (10:44)
[2024-08-27] MEDS: Ciprofloxacin 500 MG TAB PO SCH ×2 (10:46→19:47)
[2024-08-28 05:57] LABS: #Basophils 0.03 10x3/uL (0.0-0.2); %Basophils 0.6 % (0.0-1.0); %Eosinophils 1.9 % (0.0-10.0); %Lymphocytes 32.1 % (21.0-51.0); %Monocytes 9.2 % (0.0-10.0); Hemoglobin 10.9 g/dL (12.0-16.0); Mean Corpuscular HGB CONC 32.1 g/dL (32.0-36.0); Mean Corpuscular Hemoglobin 30.4 pg (27.0-31.0); Mean Corpuscular Volume 94.7 fL (78.0-98.0); Mean Platelet Volume 10.1 fL (7.4-10.4); Platelet Count 286 10x3/uL (130-400); RBC Distribution Width 12.3 % (11.5-14.5); Red Blood Cell (RBC) Count 3.59 mill/uL (4.20-5.40)
[2024-08-28 06:36] LABS: Anion Gap 9 mmol/L (10-20); BUN (Urea Nitrogen) 10 mg/dL (7.0-18.7); Calc. Creatinine Clearance 110 mL/min (70-130); Calcium 8.8 mg/dL (7.8-10.44); Carbon Dioxide 27 mmol/L (22-29); Chloride 106 mmol/L (98-107); Estimated GFR 113; Glucose 93 mg/dL (70-105); Potassium 3.3 mmol/L (3.5-5.1); Sodium 139 mmol/L (136-145)
[2024-08-29 03:49] VITALS: TEMP 98.1
[2024-08-29 04:55] LABS: #Basophils 0.05 10x3/uL (0.0-0.2); %Basophils 1.1 % (0.0-1.0); %Eosinophils 2.4 % (0.0-10.0); %Lymphocytes 31.9 % (21.0-51.0); %Neutrophils 53.9 % (42.0-75.0); Hematocrit 36.7 % (36.0-47.0); Hemoglobin 12.1 g/dL (12.0-16.0); Mean Corpuscular Hemoglobin 30.7 pg (27.0-31.0); Mean Corpuscular Volume 93.1 fL (78.0-98.0); Mean Platelet Volume 10.1 fL (7.4-10.4); Platelet Count 312 10x3/uL (130-400); RBC Distribution Width 12.2 % (11.5-14.5); Red Blood Cell (RBC) Count 3.94 mill/uL (4.20-5.40)
[2024-08-29 05:16] LABS: Anion Gap 11 mmol/L (10-20); BUN (Urea Nitrogen) 10 mg/dL (7.0-18.7); Calc. Creatinine Clearance 112 mL/min (70-130); Calcium 9.1 mg/dL (7.8-10.44); Carbon Dioxide 27 mmol/L (22-29); Chloride 104 mmol/L (98-107); Estimated GFR 113; Glucose 95 mg/dL (70-105); Potassium 3.9 mmol/L (3.5-5.1); Sodium 138 mmol/L (136-145)
[2024-08-29 08:09] VITALS: BP 118/79
== END 2024-08-29 09:30 | disposition home or self-care (01) | DRG 331 ==
LOC: SURG A 05:50 → EDSTATUS 12:57
PROVIDERS: ADMIT Family Medicine; ATTEND Surgery
PROC: 0DBN4ZZ Excision of Sigmoid Colon, Percutaneous Endoscopic Approach (ICD-10-PCS; principal; 2024-08-25)
PROC: 8E0W4CZ Robotic Assisted Procedure of Trunk Region, Percutaneous Endoscopic Approach (ICD-10-PCS; 2024-08-25)
DX: K57.20 Diverticulitis of large intestine with perforation and abscess without bleeding (principal); D25.9 Leiomyoma of uterus, unspecified
CPT/HCPCS: 36415; 36416; 80048; 80053; 83036; 85025; 88307; 93005; 93010; C1776; C1889; J0171; J0665; J0690; J1100; J1170; J1644; J1650; J1885; J2250; J2272; J2405; J2550; J2704; J3010

== ENCOUNTER 2025-10-12 10:37 | Observation (INO) | payer BC ==
[2025-10-12 11:15] LABS: #Basophils 0.05 10x3/uL (0.0-0.2); #Eosinophils Less than 0.03 10x3/uL (0.0-0.7); #Monocytes 0.38 10x3/uL (0.11-0.59); #Neutrophils 7.44 10x3/uL (1.40-6.50); %Basophils 0.5 % (0.0-1.0); %Eosinophils 0.2 % (0.0-10.0); %Lymphocytes 13.2 % (21.0-51.0); %Monocytes 4.2 % (0.0-10.0); %Neutrophils 81.5 % (42.0-75.0); Hematocrit 41.0 % (36.0-47.0); Hemoglobin 13.7 g/dL (12.0-16.0); Mean Corpuscular Hemoglobin 29.5 pg (27.0-31.0); Mean Corpuscular Volume 88.2 fL (78.0-98.0); Platelet Count 351 10x3/uL (130-400); Red Blood Cell (RBC) Count 4.65 mill/uL (4.20-5.40); White Blood Cell (WBC) Count 9.14 10x3/uL (4.8-10.8)
[2025-10-12 11:32] LABS: BHCG - Serum Negative (NEGATIVE); Pregs Control Background? CLEAR/WHITE (CLR/WHITE); Pregs Control Bar Appear? YES (CONTROL BAR)
[2025-10-12 11:39] LABS: ALT (SGPT) 63 U/L (Less than 34); AST (SGOT) 55 U/L (11-34); Albumin 4.3 g/dL (3.1-4.5); Alkaline Phosphatase 74 U/L (40-110); Anion Gap 22 mmol/L (10-20); BUN (Urea Nitrogen) 10 mg/dL (7.0-18.7); Bilirubin, Total 0.6 mg/dL (0.3-1.2); Calc. Creatinine Clearance 0 mL/min (70-130); Calcium 8.7 mg/dL (7.8-10.44); Carbon Dioxide 18 mmol/L (22-29); Chloride 100 mmol/L (98-107); Globulin 2.9 g/dL (2.4-3.5); Glucose 103 mg/dL (70-105); Magnesium 1.7 mg/dL (1.6-2.6); Potassium 3.3 mmol/L (3.5-5.1); Sodium 137 mmol/L (136-145)
[2025-10-12 14:13] LABS: Free T4 (Free Thyroxine) 0.99 ng/dL (0.70-1.48)
[2025-10-12] MEDS ORDERED: Metoprolol Tartrate 5 MG (5 mL) VIAL ONE (15:28)
[2025-10-12] MEDS ORDERED: Melatonin 3 MG TAB PO PRN (18:50)
[2025-10-12] MEDS ORDERED: Ondansetron PF 4 MG/2 ML Vial IVP PRN (18:51)
[2025-10-12] MEDS ORDERED: Senokot S 8.6-50 MG TAB PO PRN (18:51)
[2025-10-12] MEDS: clonazePAM 0.5 MG TAB PO SCH (19:59)
[2025-10-12] MEDS: Acetaminophen 325 MG TAB PO PRN (19:59)
[2025-10-12 20:57] LABS: Influenza A by NAA Not Detected (NotDetected); Influenza B by NAA Not Detected (NotDetected); SARS-CoV-2 NAA Rapid Test Not Detected (NotDetected)
[2025-10-13 04:08] LABS: #Basophils 0.04 10x3/uL (0.0-0.2); #Eosinophils 0.08 10x3/uL (0.0-0.7); #Monocytes 0.35 10x3/uL (0.11-0.59); #Neutrophils 2.84 10x3/uL (1.40-6.50); %Basophils 0.8 % (0.0-1.0); %Eosinophils 1.7 % (0.0-10.0); %Lymphocytes 30.1 % (21.0-51.0); %Monocytes 7.4 % (0.0-10.0); %Neutrophils 59.8 % (42.0-75.0); Hematocrit 39.7 % (36.0-47.0); Hemoglobin 13.0 g/dL (12.0-16.0); Mean Corpuscular Hemoglobin 29.6 pg (27.0-31.0); Mean Corpuscular Volume 90.4 fL (78.0-98.0); Platelet Count 295 10x3/uL (130-400); Red Blood Cell (RBC) Count 4.39 mill/uL (4.20-5.40); White Blood Cell (WBC) Count 4.75 10x3/uL (4.8-10.8)
[2025-10-13 04:26] LABS: Anion Gap 18 mmol/L (10-20); BUN (Urea Nitrogen) 8 mg/dL (7.0-18.7); Calc. Creatinine Clearance 0 mL/min (70-130); Calcium 9.1 mg/dL (7.8-10.44); Carbon Dioxide 23 mmol/L (22-29); Chloride 105 mmol/L (98-107); Glucose 108 mg/dL (70-105); Potassium 3.8 mmol/L (3.5-5.1); Sodium 142 mmol/L (136-145)
[2025-10-13 07:32] VITALS: TEMP 98
[2025-10-13 07:36] VITALS: BMI 25.2
[2025-10-13] MEDS ORDERED: diphenhydrAMINE 25 MG CAP PO PRN (08:06)
[2025-10-13] MEDS: Metoprolol Succinate XL 25 MG ER.TAB PO SCH (08:55)
[2025-10-13] MEDS: Pantoprazole 40 MG DR.TAB PO SCH (08:56)
[2025-10-13 12:21] VITALS: BP 135/92
[2025-10-13] MEDS ORDERED: NIFEdipine XL 30 MG ER.TAB PO SCH (21:00)
[2025-10-13] MEDS ORDERED: Metoprolol Succinate XL 25 MG ER.TAB PO SCH (21:00)
== END 2025-10-13 15:16 | disposition home or self-care (01) ==
LOC: ERS 10:37 → OBS 15:48
PROVIDERS: ADMIT Family Medicine; ATTEND Family Medicine
DX: R07.89 Other chest pain (principal); R00.2 Palpitations; E87.6 Hypokalemia; I10 Essential (primary) hypertension; K21.9 Gastro-esophageal reflux disease without esophagitis; F41.9 Anxiety disorder, unspecified; Z79.899 Other long term (current) drug therapy; Z98.890 Other specified postprocedural states
CPT/HCPCS: 36415; 71045; 80048; 80053; 82088; 82533; 83735; 83835; 83880; 84244; 84439; 84443; 84484; 84703; 85025; 85379; 87636; 93005; 93306; 94760; 96374; 96376; G0378; J2060